=== PATIENT | male | born 1950 | race Hispanic/Latino ===

== ENCOUNTER 2017-12-02 16:54 | Inpatient (IN) | payer MEDICAID ==
--- NOTE | 2017-12-02 18:12 | ED PDOC ---
HPI: Psych/Substance Abuse Time Seen by Provider: 12/02/17 17:05 Chief Complaint (Nursing): Psychiatric Evaluation Chief Complaint (Provider): Psychiatric Evaluation History Per: Patient History/Exam Limitations: clinical condition Additional Complaint(s): 67 y/o male is brought to the ED by EMS for psychiatric transfer form [facility]. Upon arrival to ED patient has elevated blood pressure reading, preventing his admission. Denies chest pain, abdominal pain, shortness of breath , nausea, vomiting, palpitations, cough, syncope, headache or any further medical complaints. PMD: Dr. 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, tracheostomy - Family History Family History: States: Unknown Family Hx - Social History Current smoker - smoking cessation education provided: No Alcohol: None Drugs: Denies - Allergies Allergies/Adverse Reactions: Allergies Allergy/AdvReac Type Severity Reaction Status Date / Time doxepin [From Sinequan] Allergy RASH Verified 12/02/17 16:57 Review of Systems ROS Statement: Except As Marked, All Systems Reviewed And Found Negative (As per HPI, otherwise negative) Constitutional: Positive for: Other (Elevated blood pressure) Cardiovascular: Negative for: Chest Pain, Palpitations Respiratory: Negative for: Cough, Shortness of Breath Gastrointestinal: Negative for: Nausea, Vomiting, Abdominal Pain Neurological: Negative for: Headache, Other (syncope) Physical Exam - Reviewed Nursing Documentation Reviewed: Yes Vital Signs Reviewed: Yes - Physical Exam Appears: Positive for: Well, Non-toxic, No Acute Distress (Patient is speaking nonsensically) Head Exam: Positive for: ATRAUMATIC, NORMOCEPHALIC Skin: Positive for: Normal Color, Warm, Dry Eye Exam: Positive for: EOMI, PERRL ENT: Positive for: Pharynx Is (clear, uvula midline), Other (Mucus membranes moist.) Neck: Positive for: Painless ROM, Supple Cardiovascular/Chest: Positive for: Regular Rate, Rhythm. Negative for: Murmur Respiratory: Positive for: Normal Breath Sounds. Negative for: Accessory Muscle Use, Respiratory Distress Gastrointestinal/Abdominal: Positive for: Soft. Negative for: Tenderness, Distended, Guarding Back: Positive for: Normal Inspection Extremity: Positive for: Normal ROM. Negative for: Deformity Neurologic/Psych: Positive for: Alert (Patient is alert, awake and acitvely eating from food tray). Negative for: Oriented - ECG O2 Sat by Pulse Oximetry: 100 (RA) Pulse Ox Interpretation: Normal Medical Decision Making Medical Decision Making: Time: 18:00 Initial Impression: psychiatric aadmission, elevated blood pressure upon arrival --Upon review of transfer record, patient medicated with cardizem 90mg every 6 hours for HTN. Plan: Cardizem 90mg PO Reevaluation Repeat Vitals 1:1 observation 1830 Repeat HR: 77 Repeat BP: 169/97 1900 Repeat HR: 87 Repeat BP: 167/89 1940 Repeat BP: 148/94 Repeat HR: 75 On re-evaluation, patient offers no additional complaints. On exam, patient remains in no acute distress. Lungs clear to auscultation, cardiac RRR, abdomen soft, non-tender, repeat neuro exam shows no focal findings. Lab /Diagnostic results d/w the patient in great detail. Diagnosis of elevated BP d/w the patient. Based on history, exam and diagnostic results, plan will be for inpatient psychiatric admission. Arrangements made for admission. Diagnosis: Schizoaffective Accepting : Dax Scribe Attestation: Documented by Nayla Persaud acting as a scribe for KAROLINA Bauman. Scribe Attestation: All medical record entries made by the Scribe were at my direction and personally dictated by me. I have reviewed the chart and agree that the record accurately reflects my personal performance of the history, physical exam, medical decision making, and the department course for this patient. I have also personally directed, reviewed, and agree with the discharge instructions and disposition. Disposition - Clinical Impression Clinical Impression: Schizoaffective disorder, Elevated blood pressure reading - Patient ED Disposition Is Patient to be Admitted: Yes Counseled Patient/Family Regarding: Studies Performed, Diagnosis - Disposition Disposition Time: 19:47 Condition: STABLE - Pt Status Changed To: Hospital Disposition Of: Inpatient - Admit Certification Admit to Inpatient:: After my assessment, the patient will require hospitalization for at least two midnights. This is because of the severity of symptoms shown, intensity of services needed, and/or the medical risk in this patient being treated as an outpatient.
[2017-12-02 20:04] VITALS: O2SAT 100
[2017-12-02] MEDS ORDERED: Magnesium Hydroxide Susp 30 ml UD PO PRN (20:27)
[2017-12-02] MEDS ORDERED: Alum-Mag Hydrox-Simethicone Susp (30 mL) PO PRN (20:27)
[2017-12-02] MEDS ORDERED: Bismuth Subsalicylate 262 mg/15 ml Sus (240 ml) PO PRN (20:27)
--- NOTE | 2017-12-02 21:26 | PCM.BM ---
<Rivera Mora - Last Filed: 12/02/17 21:25> Treatment Plan Problems - Problems identified on initial assessmt Agitated/aggressive behavior Date Initiated: 12/02/17 Time Initiated: 21:25 Assessment reference: NA Status: Active Treatment assets and liabiliti Patient Assests: good support system, negotiates basic needs Patient Liabilities: medical problems - Milieu Protocol Maintain good personal hygiene: every shift Encourage regular showers, every shift Remind patient to perform daily oral care, every shift Assist patient to perform ADL's Maintain personal safety: daily Educate patient to report safety concerns to staff, daily Monitor environment for contraband/sharps Medication safety: Monitor for expected outcome, potential side effects: daily, Assess barriers to learning: daily, Assess readiness for medication education: daily <Eli Harper - Last Filed: 12/03/17 09:51> - Diagnosis (1) Schizoaffective disorder Status: Acute Interventions: Medication management, Individual and group therapy, Psychoeducation 12/03/17 09:51 <Yasmin Andre - Last Filed: 12/04/17 15:15> Family Contact Family contact: Patient agrees to contact, Family has been contacted by patient , Telephone contact initiated by staff Family contact name: Preston Nelsy YUAN Family contacted how many times per week?: 2 - Outside Agency [facility]] and [facility] Care involvment: Information-sharing Agency contact number: - Goals for Treatment Patient goals for treatment: Pt to be encouraged to attend activity and clinical groups 3-5x per week to identify at least 2 contributing factors to increased agitation, irritability, and aggression. Psycho-education to be provided to patient/family regarding benefits of medications and treatment adherence. Pt to be encouraged to participate in group milieu to develop effective coping skills to reduce aggression and reduce psychiatric hospitalizations. Coordinate discharge resource needs by providing referral for psychiatric treatment follow up in the community. Discharge/Continuing Care - Education Needs Education Needs: Family Medication, Family Diagnosis/Disease Process, Family Coping Skills, Family Community resources, Family Health Practices/Safety, Family Personal Hygiene/Grooming, Family Aftercare Safety Plan, Patient Medication, Patient Diagnosis/Disease Process, Patient Coping Skills, Patient Community resources, Patient Uses of Medical Equipment, Patient Health Practices /Safety, Patient Personal Hygiene/Grooming, Patient Aftercare Safety Plan - Discharge Discharge Criteria: Tolerates medication w/o severe side effects, Free of agitation, Normal sleep pattern, Ability to care for self, Reduction of target symptoms Discharge to:: Prison - Additional Comments 12/04/17 15:08 Pt seen and discussed in team meeting. Reason for admissions reviewed and discussed. Pt reported he was referred to the ED at [facility] because "the jerk put me here." Pt reported he was making reference to the staff members at [facility]hab [facility] nursing [facility]. Pt reported being a resident at [facility] since February 06, 2017 after bring discharged from [facility]. Pt reported he was at [facility] for 12 months. Pt presented as grandiose and inappropriately laughing. Pt reported being multilingual and having the ability to play multiple musical instruments. Pt was referred to the ED due to aggression and increased agitation. Pt's brother, Preston Whittington ([phone]) is POA. Pt's medications reviewed and discussed. Tx plan reviewed and discussed. SW to continue to follow case and contact pt's brother for additional information. - Treatment Team Participation Discussed with Family/SO: No Was Patient/Family/SO present at Treatment Team Meeting: Yes
[2017-12-02] MEDS ORDERED: Risperidone M tab 1 MG PO SCH (22:00)
[2017-12-03 07:32] LABS: HEMOGLOBIN 9.9 g/dL (12.0-18.0); MEAN CELL VOLUME 62.4 fl (80.0-94.0); MEAN CORPUSCULAR HEMOGLOBIN 19.5 pg (27.0-31.0); MEAN CORPUSCULAR HGB CONC 31.3 g/dL (33.0-37.0); RBC 5.08 Mil/uL (4.40-5.90); RED CELL DISTRIBUTION WIDTH 18.7 % (11.5-14.5); WHITE BLOOD COUNT 7.5 K/uL (4.8-10.8)
[2017-12-03 07:46] LABS: ALB/GLOB RATIO 1.1 (1.0-2.1); CALCIUM 9.1 mg/dL (8.4-10.2); GFR AFRICAN-AMERICAN > 60; GFR NON-AFRICAN AMERICAN > 60; HDL CHOLESTEROL 53 MG/DL (30-70)
--- NOTE | 2017-12-03 07:53 | PCM.PSYCH ---
Initial Psychiatric Evaluation - Initial Psychiatric Evaluation Type of Admission: Voluntary Legal Status: Capacity Chief Complaint (in patient's own words): "I'm fine." Patient's Reaction to Hospitalization: HPI: 67 yo male w/ h/o schizoaffective disorder presents w/ worsening behavioral issues, mood lability and acute psychosis. As per patient's family, patient has been increasing delusional, believing that he has special abilities. He has also been physically and verbally aggressive towards others. Patient is minimizing symptoms to marketing underwriter. He denies depression/anxiety. He denies ideations to harm self or others. He denies AH/VH, but seems internally preoccupied and is observed talking to himself. He did express vague paranoia that the [facility] staff were trying to set him up, but denies that anyone is actively trying to persecute him. PPHx: H/o Schizoaffective vs bipolar disorder; was treated w/ [place] in the past, but this was discontinued due to lithium toxicity. He is now treated w/ Haldol, Zyprexa and Ativan. PMHx: (As per records, patient not able to provided accurate history) Was found to have UTI in the [facility] ER and was started on Keflex; Cellulities, GI hemorrhage, h/o MRSA, h/o sepsis, anemia ALL: Doxepin SHx: Resides in [facility]; brother is POA Current Medications: Active Medications Generic Name Dose Route Start Last Admin Trade Name Freq PRN Reason Stop Dose Admin Acetaminophen 650 mg 12/02/17 20:27 Tylenol 325mg Tab PO Q4 PRN Pain, moderate (4-7) Al Hydrox/Mg Hydrox/Simethicone 30 ml 12/02/17 20:27 Maalox Plus 30 Ml PO Q4 PRN Dyspepsia Bismuth Subsalicylate 524 mg 12/02/17 20:27 Pepto-Bismol PO Q4 PRN Diarrhea Lorazepam 0.5 mg 12/02/17 20:27 Ativan PO 12/16/17 20:28 HS PRN Insomnia Lorazepam 0.5 mg 12/02/17 20:27 Ativan PO 12/16/17 20:28 Q6 PRN Anixety/Agitation Magnesium Hydroxide 30 ml 12/02/17 20:27 Milk Of Magnesia PO HS PRN Constipation Risperidone 1 mg 12/02/17 22:00 12/02/17 21:34 Risperdal M-Tab PO 1 mg HS TAMMI Administration Trazodone HCl 50 mg 12/02/17 21:19 12/02/17 23:16 Desyrel PO 50 mg HS PRN Administration Insomnia Past Psychiatric History - Past Psychiatric History Previous Treatment History: Inpatient Pertinent Medical Hx (Current Medical&Sleep Prob, Allergies): Allergies Allergy/AdvReac Type Severity Reaction Status Date / Time doxepin [From Sinequan] Allergy RASH Verified 12/02/17 16:57 Acidoph/L.bulg/Bif.b/S.thermop [Isaura-Bid Caplet] 1 tab PO BID 12/02/17 Albuterol Sulfate [Albuterol Sulfate] Q6 PRN 12/02/17 Dextromethorphan/Benzocaine [Cepacol Sorethroat-Cough Breezy] 1 lozenge PO Q2 PRN 12/02/17 Docusate [Colace] 100 mg PO BID 12/02/17 Haloperidol [Haldol] 5 mg PO TID 12/02/17 LORazepam [Ativan] 1 mg PO TID 12/02/17 Magnesium Hydroxide [Milk Of Magnesia] 30 ml PO DAILY PRN 12/02/17 Olanzapine [Zyprexa] 5 mg PO HS 12/02/17 Pantoprazole Sodium [Protonix] 40 tab PO Q12 12/02/17 Sucralfate [Carafate] 1 gm PO ACHS 12/02/17 Tamsulosin [Flomax] 0.4 mg PO DAILY 12/02/17 diltiaZEM [Cardizem] 90 mg PO Q6 12/02/17 guaiFENesin/Dextromethorphan [Robitussin DM] 10 ml PO Q6 PRN 12/02/17 Review of Systems - Psychiatric Psychiatric: As Per HPI, Abnormal Sleep Pattern, Behavioral Changes, Difficulty Concentrating, Irritability, Memory Loss, Paranoia, Other (Delusions) Mental Status Examination - Personal Presentation Personal Presentation: Looks older than stated age - Affect Affect: Broad, Other (Inappropriately happy) - Motor Activity Motor Activity: Calm - Reliability in Providing Information Reliability in Providing Information: Poor, due to alteration in thoughts, Poor , due to altered mood - Speech Speech: Coherent - Mood Mood: Euphoric - Formal Thought Process Formal Thought Process: Paranoia, Loosening of associations - Hallucinations/Delusions Delusions: Granduer - Obsessions/Compulsions Obsessions: No Compulsions: No - Cognitive Functions Orientation: Person, Place, Situation, Time Sensorium: Alert Attention/Concentration: Easily distracted Estimate of Intelligence: Average Judgement: Imparied, as evidence by: Poor judgement, Imparied, as evidence by: Lack of insight into illness Memory: Recent impaired, as evidence by: Inability to recall events of the day - Risk Risk: Diminished functioning - Strength & Assets Inventory Strength & Assets Inventory: Family support, Cooperative - Limitations Limitations: Decreased memory, recent DSM 5 DX - DSM 5 DSM 5 Diagnosis: Schizoaffective Disorder - Recommended/Plan of Treatment Treatment Recommendations and Plan of Treatment: Schizoaffective Disorder -Admit to geriatric psychiatry unit -Individual and group therapy -Psychoeducation -Case discussed w/ patient's [id number], Domonique -Increase Zyprexa and hold Haldol; can given Haldol PRN if needed -Start Depakote 500 mg PO BID -Taper Ativan in case it is causing the patient to be more disinhibited -Disposition planning -Medicine consult Projected ELOS: 7-10 days Discharge Plan and Discharge Criteria: Discharge when patient is psychiatrically stable - Smoking Cessation Smoking Cessation Initiated: No Reason for not providing: Not indicated
[2017-12-03 07:58] LABS: LDL CHOLESTEROL 63 mg/dL (0-129)
[2017-12-03 08:04] LABS: T4 8.11 ug/dl (5.5-11.0)
[2017-12-03 08:22] LABS: FERRITIN 9.4 ng/Ml (17.9-464)
[2017-12-03 09:02] LABS: ALT/SGPT 29 U/L (21-72); AST/SGOT 34 U/L (17-59); BLOOD UREA NITROGEN 19 mg/dl (9-20)
[2017-12-03 09:39] LABS: IRON 24 ug/dL (49-181)
[2017-12-03 09:48] LABS: % IRON SATURATION 6 % (20-55); TOTAL IRON BINDING CAPACITY 413 ug/dL (250-450)
[2017-12-03] MEDS: Pantoprazole 40 mg EC Tab PO SCH (11:10)
[2017-12-03] MEDS: Divalproex 500 mg DR(BID formulation) PO SCH ×2 (11:57→16:56)
[2017-12-03] MEDS ORDERED: guaiFENesin DM 200 mg-20 mg/10 ml UD PO PRN (13:36)
--- NOTE | 2017-12-03 13:45 | CP.PCM.CON ---
History of Present Illness - History of Present Illness History of Present Illness: This is a 67 year old male with past medical history of essential hypertension, schizophrenia, Bipolar disorder, anxiety, who is being admitted to the inpatient psychiatric abebe from [facility]. The patient is complaining of some chest congestion but denies cough at this time. Denies any chest pain, abdominal pain, shortness of breath, nausea, vomiting, palpitations , cough, syncope, headache or any further medical complaints. PMD: Dr. Guzman Review of Systems - Review of Systems Review of Systems: A 12 point review of systems was conducted and found to be negative other than what was mentioned in the HPI. - Neurological Additional comments: A 12 point review of systems was conducted and found to be negative other than what was mentioned in the HPI. Past Patient History - Infectious Disease Hx of Infectious Diseases: None - Past Medical History & Family History Past Medical History?: Yes Past Family History: Reviewed and not pertinent - Past Social History Smoking Status: Former Smoker Alcohol: None Drugs: Denies - CARDIAC Hx Hypertension: Yes - MUSCULOSKELETAL/RHEUMATOLOGICAL Hx Falls: No - GENITOURINARY/GYNECOLOGICAL Hx Prostate Problems: Yes (benign neoplasm of the prostate) - PSYCHIATRIC Hx Anxiety: Yes Hx Bipolar Disorder: Yes Hx Depression: Yes (manic depression) Hx Schizophrenia: Yes Meds Allergies/Adverse Reactions: Allergies Allergy/AdvReac Type Severity Reaction Status Date / Time doxepin [From Sinequan] Allergy RASH Verified 12/02/17 16:57 - Medications Medications: Current Medications Acetaminophen (Tylenol 325mg Tab) 650 mg PO Q4 PRN PRN Reason: Pain, moderate (4-7) Al Hydrox/Mg Hydrox/Simethicone (Maalox Plus 30 Ml) 30 ml PO Q4 PRN PRN Reason: Dyspepsia Albuterol Sulfate (Albuterol 0.083% Inhal Desiree (2.5 Mg/3 Ml) Ud) 2.5 mg INH RQ6 PRN PRN Reason: Shortness of Breath Bismuth Subsalicylate (Pepto-Bismol) 524 mg PO Q4 PRN PRN Reason: Diarrhea Cephalexin Monohydrate (Keflex) 500 mg PO Q12 TAMMI PRN Reason: Protocol Stop: 12/10/17 01:00 Last Admin: 12/03/17 11:09 Dose: 500 mg Diltiazem HCl (Cardizem) 90 mg PO Q6 [facility] Last Admin: 12/03/17 11:09 Dose: 90 mg Divalproex Sodium (Depakote Dr(*Bid*)) 500 mg PO BID [facility] Last Admin: 12/03/17 11:57 Dose: 500 mg Docusate Sodium (Colace) 100 mg PO BID [facility] Haloperidol (Haldol) 5 mg PO Q8 PRN PRN Reason: Agitation Haloperidol Lactate (Haldol) 5 mg IM Q8 PRN PRN Reason: Agitation Lorazepam (Ativan) 0.5 mg PO HS PRN PRN Reason: Insomnia Stop: 12/16/17 20:28 Lorazepam (Ativan) 0.5 mg PO Q6 PRN PRN Reason: Anixety/Agitation Stop: 12/16/17 20:28 Lorazepam (Ativan) 0.5 mg PO TID [facility] Magnesium Hydroxide (Milk Of Magnesia) 30 ml PO HS PRN PRN Reason: Constipation Olanzapine (Zyprexa) 10 mg PO HS [facility] Pantoprazole Sodium (Protonix Ec Tab) 40 mg PO DAILY [facility] Last Admin: 12/03/17 11:10 Dose: 40 mg Sucralfate (Carafate Tab) 1 gm PO QID [facility] Tamsulosin HCl (Flomax) 0.4 mg PO DAILY [facility] Last Admin: 12/03/17 11:10 Dose: 0.4 mg Physical Exam - Additional Findings Additional findings: Physical exam: Constitutional- cooperative, awake, alert Head- NCAT, PERRL Eye- PERRL, EOMI ENT- normal exam, MMM. Neck- normal inspection, supple, no JVD Respiratory- CTAB, mild rhonchi left base, no wheezing or rales Cardiovascular- RRR, +S1, +S2 no MRG GI/Abdominal- normal bowel sounds, soft, no mass, no hsm Skin- warm, dry Extremities Exam- normal capillary refill, normal inspection Neurological Exam- alert, awake, oriented Psych- normal mood, normal affect Results - Vital Signs Recent Vital Signs: Last Vital Signs Temp 98.1 F 12/03/17 06:00 Pulse 68 12/03/17 06:00 Resp 19 12/03/17 06:00 BP 159/80 H 12/03/17 06:00 Pulse Ox 100 12/02/17 20:47 - Labs Result Diagrams: 12/03/17 07:04 12/03/17 07:04 Labs: Laboratory Results - last 24 hr 12/03/17 12/03/17 12/03/17 07:04 07:04 07:04 WBC 7.5 RBC 5.08 Hgb 9.9 L Hct 31.7 L MCV 62.4 L MCH 19.5 L MCHC 31.3 L RDW 18.7 H Plt Count 241 Sodium 141 Potassium 4.2 Chloride 102 Carbon Dioxide 25 Anion Gap 18 BUN 19 Creatinine 0.8 Est GFR ( Amer) > 60 Est GFR (Non-Af Amer) > 60 Random Glucose 100 Hemoglobin A1c Calcium 9.1 Iron TIBC % Saturation Ferritin 9.4 L Total Bilirubin 0.6 AST 34 ALT 29 Alkaline Phosphatase 76 Total Protein 7.5 Albumin 4.0 Globulin 3.5 Albumin/Globulin Ratio 1.1 Triglycerides 54 Cholesterol 138 LDL Cholesterol Direct 63 HDL Cholesterol 53 Vitamin B12 362 Free T4 1.19 Thyroxine (T4) 8.11 TSH 3rd Generation 1.08 12/03/17 12/03/17 07:08 07:08 WBC RBC Hgb Hct MCV MCH MCHC RDW Plt Count Sodium Potassium Chloride Carbon Dioxide Anion Gap BUN Creatinine Est GFR ( Amer) Est GFR (Non-Af Amer) Random Glucose Hemoglobin A1c 6.4 Calcium Iron 24 L TIBC 413 % Saturation 6 L Ferritin Total Bilirubin AST ALT Alkaline Phosphatase Total Protein Albumin Globulin Albumin/Globulin Ratio Triglycerides Cholesterol LDL Cholesterol Direct HDL Cholesterol Vitamin B12 Free T4 Thyroxine (T4) TSH 3rd Generation Assessment & Plan - Assessment and Plan (Free Text) Plan: This is a 67 year old male with past medical history of essential hypertension, schizophrenia, Bipolar disorder, anxiety, who is being admitted to the inpatient psychiatric abebe from [facility]. He is being seen by the hospitalist team for medical consultation. 1) Essential hypertension - Patient takes Cardizem 90 mg po q 6 hours for home medication- continue for now but monitor BP and HR closely 2) Bipolar disorder- acutely manic - management as per psychiatry 3) Constipation - Colace 4) Benign neoplasm of prostate - Continue Flomax
[2017-12-03 17:30] LABS: FOLATE 10.7 ng/mL
--- NOTE | 2017-12-04 08:22 | PCM.PYCHPN ---
Psychiatric Progress Note - Psychiatric Progress Note Patient seen today, length of contact: Patient evaluated, case discussed with team, chart reviewed Patient Chief Complaint: "I'm good." Problems Identified/Issues Discussed: Patient is calm w/ comic book writer. He continues to be euphoric, inappropriately happy and grandiose. He talks about his girlfriend and how he is a great surfer. He continues to have poor insight into his mental illness and poor judgment. He denies acute ideation to harm himself or others. Medication Change: No Medical Record Reviewed: Yes Consults ordered or reviewed: Medicine consult, Physical therapy Mental Status Examination - Cognitive Function Orientation: Person, Place, Situation, Time Memory: Impaired Attention: Poor Concentration: Poor Association: Loose Fund of Knowledge: Poor Decription of patient's judgement and insights: Poor I/J - Mood Mood: Euphoric - Affect Affect: Broad, Other (Inappropriately happy) - Speech Speech: Appropriate - Formal Thought Process Formal Thought Process: Delusions (Grandiose), Loosening of associations Psychotic Thoughts and Behaviors: +Grandiose - Suicidal Ideation Suicidal Ideation: No - Homicidal Ideation Homicidal Ideation: No Goal/Treatment Plan - Goal/Treatment Plan Need for Continued Stay: Remain at risks for inpatient hospitalization, Discharge may exacerbated symptoms, Severe functional impairment Progress Toward Problem(s) and Goals/Treatment Plan: Schizoaffective Disorder -Individual and group therapy -Psychoeducation -Continue Zyprexa and Depakote -Continue to taper Ativan in case it is causing the patient to be more disinhibited -Disposition planning -Medicine consult -Physical therapy Estimated Date of D/C: 12/10/17
[2017-12-04] MEDS: Divalproex 500 mg DR(BID formulation) PO SCH ×2 (08:24→16:26)
[2017-12-04] MEDS: Pantoprazole 40 mg EC Tab PO SCH (08:25)
[2017-12-05 00:06] LABS: SQUAMOUS EPITHIAL < 1 /hpf (0-5); URINE BILIRUBIN NEGATIVE (NEGATIVE); URINE BLOOD SMALL (NEGATIVE); URINE CLARITY TURBID (Clear); URINE COLOR YELLOW (YELLOW); URINE GLUCOSE (UA) NEG (Normal); URINE LEUKOCYTE ESTERASE LARGE Leu/uL (Negative); URINE PROTEIN NEGATIVE (NEGATIVE); URINE UROBILINOGEN 0.2-1.0 mg/dL (0.2-1.0); WBC CLUMPS FEW /hpf
--- NOTE | 2017-12-05 08:45 | PCM.PYCHPN ---
Psychiatric Progress Note - Psychiatric Progress Note Patient seen today, length of contact: Patient evaluated, case discussed with team, chart reviewed Patient Chief Complaint: "I'm good." Problems Identified/Issues Discussed: Patient continue to be manic w/ pressured speech, euphoria and grandiose delusions, including that he can speak multiple languages and has special abilities and talents. He continues to have poor insight into his mental illness and poor judgment. He denies acute ideation to harm himself or others. Medication Change: Yes (Increase Zyprexa) Medical Record Reviewed: Yes Consults ordered or reviewed: Medicine consult, Physical therapy Mental Status Examination - Cognitive Function Orientation: Person, Place, Situation, Time Memory: Impaired Attention: Poor Concentration: Poor Association: Loose Fund of Knowledge: Poor Decription of patient's judgement and insights: Poor I/J - Mood Mood: Euphoric - Affect Affect: Broad, Other (Inappropriately happy) - Speech Speech: Appropriate - Formal Thought Process Formal Thought Process: Delusions (Grandiose), Loosening of associations Psychotic Thoughts and Behaviors: +Grandiose delusions - Suicidal Ideation Suicidal Ideation: No - Homicidal Ideation Homicidal Ideation: No Goal/Treatment Plan - Goal/Treatment Plan Need for Continued Stay: Remain at risks for inpatient hospitalization, Discharge may exacerbated symptoms, Severe functional impairment Progress Toward Problem(s) and Goals/Treatment Plan: Schizoaffective Disorder -Individual and group therapy -Psychoeducation -Increase Zyprexa -Continue Depakote, will check VPA level 12/08/17 -Continue to taper Ativan in case it is causing the patient to be more disinhibited -Disposition planning -Medicine consult -Physical therapy Estimated Date of D/C: 12/10/17
[2017-12-05] MEDS: Pantoprazole 40 mg EC Tab PO SCH (09:11)
[2017-12-05] MEDS: Divalproex 500 mg DR(BID formulation) PO SCH ×2 (09:11→16:26)
[2017-12-06] MEDS: Divalproex 500 mg DR(BID formulation) PO SCH ×2 (08:46→17:47)
[2017-12-06] MEDS: Pantoprazole 40 mg EC Tab PO SCH (08:46)
--- NOTE | 2017-12-06 08:56 | PCM.PYCHPN ---
Psychiatric Progress Note - Psychiatric Progress Note Patient seen today, length of contact: Patient evaluated, case discussed with team, chart reviewed Patient Chief Complaint: "I'm good." Problems Identified/Issues Discussed: Patient continue to be manic, euphoric and grandiose. This morning he is talking about how he can play every instrument and speak almost every language. He has an episode of agitation yesterday and was verbally aggressive towards staff. He continues to have poor insight into his mental illness and poor judgment. He denies acute ideation to harm himself or others. Medication Change: Yes (Increase Zyprexa) Medical Record Reviewed: Yes Consults ordered or reviewed: Medicine consult, Physical therapy Mental Status Examination - Cognitive Function Orientation: Person, Place, Situation, Time Memory: Impaired Attention: Poor Concentration: Poor Association: Loose Fund of Knowledge: Poor Decription of patient's judgement and insights: Poor I/J - Mood Mood: Euphoric - Affect Affect: Broad, Other (Inappropriately happy) - Speech Speech: Appropriate - Formal Thought Process Formal Thought Process: Delusions (Grandiose), Loosening of associations Psychotic Thoughts and Behaviors: +Grandiose delusions - Suicidal Ideation Suicidal Ideation: No - Homicidal Ideation Homicidal Ideation: No Goal/Treatment Plan - Goal/Treatment Plan Need for Continued Stay: Remain at risks for inpatient hospitalization, Discharge may exacerbated symptoms, Severe functional impairment Progress Toward Problem(s) and Goals/Treatment Plan: Schizoaffective Disorder -Individual and group therapy -Psychoeducation -Increase Zyprexa -Continue Depakote, will check VPA level 12/08/17 -Stop Ativan -Disposition planning -Medicine consult -Physical therapy Estimated Date of D/C: 12/10/17
--- NOTE | 2017-12-07 08:45 | PCM.PYCHPN ---
Psychiatric Progress Note - Psychiatric Progress Note Patient seen today, length of contact: Patient evaluated, case discussed with team, chart reviewed Patient Chief Complaint: "I'm good." Problems Identified/Issues Discussed: Patient had an episode of agitation and was verbally aggressive towards another patient. Patient had to be given PRN Haldol. He continues to be labile and easily irritated. At this time, patient is calm and cooperative with junior underwriter. He continues to be manic, euphoric and grandiose. He continues to have poor insight into his mental illness and poor judgment. He denies acute ideation to harm himself or others. Medication Change: Yes (Increase Depakote) Medical Record Reviewed: Yes Consults ordered or reviewed: Medicine consult, Physical therapy Mental Status Examination - Cognitive Function Orientation: Person, Place, Situation, Time Memory: Impaired Attention: Poor Concentration: Poor Association: Loose Fund of Knowledge: Poor Decription of patient's judgement and insights: Poor I/J - Mood Mood: Euphoric - Affect Affect: Broad, Other (Inappropriately happy) - Speech Speech: Appropriate - Formal Thought Process Formal Thought Process: Delusions (Grandiose), Loosening of associations Psychotic Thoughts and Behaviors: +Grandiose delusions - Suicidal Ideation Suicidal Ideation: No - Homicidal Ideation Homicidal Ideation: No Goal/Treatment Plan - Goal/Treatment Plan Need for Continued Stay: Remain at risks for inpatient hospitalization, Discharge may exacerbated symptoms, Severe functional impairment Progress Toward Problem(s) and Goals/Treatment Plan: Schizoaffective Disorder -Individual and group therapy -Psychoeducation -Continue Zyprexa 20 mg PO HS -Increase Depakote to 500 mg PO Daily/ 750 mg PO Daily@1700, will check VPA level 12/09/17 -Patient being treated for UTI w/ Keflex -Disposition planning -Medicine consult -Physical therapy Estimated Date of D/C: 12/14/17
[2017-12-07] MEDS: Divalproex 500 mg DR(BID formulation) PO SCH ×2 (09:05→16:40)
[2017-12-07] MEDS: Pantoprazole 40 mg EC Tab PO SCH (09:06)
[2017-12-07] MEDS: Divalproex 250 mg DR(BID formulation) PO SCH (16:40)
[2017-12-08] MEDS: Divalproex 500 mg DR(BID formulation) PO SCH ×2 (08:49→17:03)
[2017-12-08] MEDS: Pantoprazole 40 mg EC Tab PO SCH (08:49)
--- NOTE | 2017-12-08 09:40 | PCM.PYCHPN ---
Psychiatric Progress Note - Psychiatric Progress Note Patient seen today, length of contact: Patient evaluated, case discussed with team, chart reviewed Patient Chief Complaint: pt is still labile and stil irritible .no aggressive behaviors. Medication Change: Yes (Increase Depakote) Medical Record Reviewed: Yes Mental Status Examination - Cognitive Function Orientation: Person, Place, Situation, Time Memory: Impaired Attention: Poor Concentration: Poor Association: Loose Fund of Knowledge: Poor - Mood Mood: Euphoric - Affect Affect: Broad, Other (Inappropriately happy) - Speech Speech: Appropriate - Formal Thought Process Formal Thought Process: Delusions (Grandiose), Loosening of associations - Suicidal Ideation Suicidal Ideation: No - Homicidal Ideation Homicidal Ideation: No Goal/Treatment Plan - Goal/Treatment Plan Need for Continued Stay: Remain at risks for inpatient hospitalization, Discharge may exacerbated symptoms, Severe functional impairment Progress Toward Problem(s) and Goals/Treatment Plan: will check VPA in am and adjust the dose. Estimated Date of D/C: 12/14/17
[2017-12-08] MEDS: Divalproex 250 mg DR(BID formulation) PO SCH (17:04)
[2017-12-09 08:06] LABS: BASO # 0.1 K/uL (0.0-0.2); BASO % 0.8 % (0.0-2.0); EOS # 0.3 K/uL (0.0-0.7); EOS % 3.8 % (0.0-4.0); HEMOGLOBIN 11.5 g/dL (12.0-18.0); LYMPH # 1.2 K/uL (1.0-4.3); LYMPH % 18.2 % (20.0-40.0); MEAN CELL VOLUME 63.4 fl (80.0-94.0); MEAN CORPUSCULAR HEMOGLOBIN 19.6 pg (27.0-31.0); MEAN PLATELET VOLUME 10.5 fl (7.2-11.7); MONO # 0.5 K/uL (0.0-0.8); MONO % 7.8 % (0.0-10.0); NEUT # 4.8 K/uL (1.8-7.0); NEUT % 69.4 % (50.0-75.0); NRBC % 0.1 % (0.0-0.0); RBC 5.86 Mil/uL (4.40-5.90); WHITE BLOOD COUNT 6.9 K/uL (4.8-10.8)
[2017-12-09 08:18] LABS: ALB/GLOB RATIO 1.2 (1.0-2.1); ALBUMIN 4.1 g/dL (3.5-5.0); ALT/SGPT 23 U/L (21-72); AST/SGOT 22 U/L (17-59); BLOOD UREA NITROGEN 16 mg/dl (9-20); CALCIUM 8.8 mg/dL (8.4-10.2); GFR AFRICAN-AMERICAN > 60; GFR NON-AFRICAN AMERICAN > 60
[2017-12-09] MEDS: Divalproex 500 mg DR(BID formulation) PO SCH (09:37)
[2017-12-09] MEDS: Pantoprazole 40 mg EC Tab PO SCH (09:39)
--- NOTE | 2017-12-09 14:52 | PCM.PYCHPN ---
Psychiatric Progress Note - Psychiatric Progress Note Patient seen today, length of contact: Patient evaluated, case discussed with team, chart reviewed Patient Chief Complaint: pt is still very belligerent,labile and easily angry and got into altercation with another peer and need further stabilization valproic acid level = 68 Medication Change: Yes (Increase Depakote) Medical Record Reviewed: Yes Mental Status Examination - Cognitive Function Orientation: Person, Place, Situation, Time Memory: Impaired Attention: Poor Concentration: Poor Association: Loose Fund of Knowledge: Poor - Mood Mood: Euphoric - Affect Affect: Broad, Other (Inappropriately happy) - Speech Speech: Appropriate - Formal Thought Process Formal Thought Process: Delusions (Grandiose), Loosening of associations - Suicidal Ideation Suicidal Ideation: No - Homicidal Ideation Homicidal Ideation: No Goal/Treatment Plan - Goal/Treatment Plan Need for Continued Stay: Remain at risks for inpatient hospitalization, Discharge may exacerbated symptoms, Severe functional impairment Progress Toward Problem(s) and Goals/Treatment Plan: katie increase depakote to 750 mg bid to address the tho and engage pt in therapy and groups. Estimated Date of D/C: 12/14/17
[2017-12-09] MEDS: Divalproex 250 mg DR(BID formulation) PO SCH (17:11)
[2017-12-10] MEDS: Pantoprazole 40 mg EC Tab PO SCH (08:43)
[2017-12-10] MEDS: Divalproex 250 mg DR(BID formulation) PO SCH ×2 (08:45→21:07)
--- NOTE | 2017-12-10 10:03 | PCM.PYCHPN ---
Psychiatric Progress Note - Psychiatric Progress Note Patient seen today, length of contact: Patient evaluated, case discussed with team, chart reviewed Patient Chief Complaint: "I need a shower now!!!" Problems Identified/Issues Discussed: Patient was irritable over the weekend and had an episode of agitation and aggression. He continues to be labile and irritable w/ field underwriter, demanding to be given a shower and claiming that he is being denied showers on the unit (not true, patient is offered daily showers). He continues to be manic and grandiose with poor insight/judgment. Medication Change: Yes (Start Klonopin) Medical Record Reviewed: Yes Consults ordered or reviewed: Medicine consult, Physical therapy Mental Status Examination - Cognitive Function Orientation: Person, Place, Situation, Time Memory: Impaired Attention: Poor Concentration: Poor Association: Loose Fund of Knowledge: Poor Decription of patient's judgement and insights: Poor I/J - Mood Mood: Euphoric - Affect Affect: Broad, Other (Inappropriately happy) - Speech Speech: Appropriate - Formal Thought Process Formal Thought Process: Delusions (Grandiose), Loosening of associations Psychotic Thoughts and Behaviors: +Grandiose - Suicidal Ideation Suicidal Ideation: No - Homicidal Ideation Homicidal Ideation: No Goal/Treatment Plan - Goal/Treatment Plan Need for Continued Stay: Remain at risks for inpatient hospitalization, Discharge may exacerbated symptoms, Severe functional impairment Progress Toward Problem(s) and Goals/Treatment Plan: Schizoaffective Disorder -Individual and group therapy -Psychoeducation -Continue Zyprexa 20 mg PO HS -Continue Depakote 750 mg PO BID; VPA 68 on 12/09/17 -Patient was treated for UTI -Will attempt trial of treatment with Klonopin 0.5 mg PO BID; patient was previously taking Ativan 1 mg PO TID prior to admission -Disposition planning -Medicine consult -Physical therapy Estimated Date of D/C: 12/14/17
--- NOTE | 2017-12-10 11:21 | PCM.BM ---
Treatment Plan Problems - Problems identified on initial assessmt Agitated/aggressive behavior Date Initiated: 12/02/17 Time Initiated: 21:25 Assessment reference: NA Status: Active Treatment assets and liabiliti Patient Assests: good support system, negotiates basic needs Patient Liabilities: medical problems - Milieu Protocol Maintain good personal hygiene: every shift Encourage regular showers, every shift Remind patient to perform daily oral care, every shift Assist patient to perform ADL's Maintain personal safety: daily Educate patient to report safety concerns to staff, daily Monitor environment for contraband/sharps Medication safety: Monitor for expected outcome, potential side effects: daily, Assess barriers to learning: daily, Assess readiness for medication education: daily Milieu Narrative: Schizoaffective Disorder -Individual and group therapy -Psychoeducation -Continue Zyprexa 20 mg PO HS -Continue Depakote 750 mg PO BID; VPA 68 on 12/09/17 -Patient was treated for UTI -Will attempt trial of treatment with Klonopin 0.5 mg PO BID; patient was previously taking Ativan 1 mg PO TID prior to admission -Disposition planning -Medicine consult -Physical therapy Family Contact Family involvement: Family/SO is involved Family contact: Patient agrees to contact, Family has been contacted by patient , Telephone contact initiated by staff Family contact name: Preston Whittington Family contact comment: [phone] - Outside Agency [facility] Care involvment: Information-sharing Agency contact number: - Goals for Treatment Patient goals for treatment: Pt to be encouraged to attend activity and clinical groups 3-5x per week to identify at least 2 contributing factors to increased agitation, irritability, and aggression. Psycho-education to be provided to patient/family regarding benefits of medications and treatment adherence. Pt to be encouraged to participate in group milieu to develop effective coping skills to reduce aggression and reduce psychiatric hospitalizations. Coordinate discharge resource needs by providing referral for psychiatric treatment follow up in the community. Discharge/Continuing Care - Education Needs Education Needs: Family Medication, Family Diagnosis/Disease Process, Family Coping Skills, Family Community resources, Family Health Practices/Safety, Family Personal Hygiene/Grooming, Family Aftercare Safety Plan, Patient Medication, Patient Diagnosis/Disease Process, Patient Coping Skills, Patient Community resources, Patient Uses of Medical Equipment, Patient Health Practices /Safety, Patient Personal Hygiene/Grooming, Patient Aftercare Safety Plan - Discharge Discharge Criteria: Tolerates medication w/o severe side effects, Free of agitation, Normal sleep pattern, Ability to care for self, Reduction of target symptoms Discharge to:: Shelter - Additional Comments 12/04/17 15:08 Pt seen and discussed in team meeting. Reason for admissions reviewed and discussed. Pt reported he was referred to the ED at [facility] because "the jerk put me here." Pt reported he was making reference to the staff members at [facility]hab [facility] nursing center. Pt reported being a resident at [facility] since February 06, 2017 after bring discharged from [facility]. Pt reported he was at [facility] for 12 months. Pt presented as grandiose and inappropriately laughing. Pt reported being multilingual and having the ability to play multiple musical instruments. Pt was referred to the ED due to aggression and increased agitation. Pt's brother, Preston Whittington ) is POA. Pt's medications reviewed and discussed. Tx plan reviewed and discussed. SW to continue to follow case and contact pt's brother for additional information. - Treatment Team Participation Patient/Family/SO Statement: Schizoaffective Disorder -Individual and group therapy -Psychoeducation -Continue Zyprexa 20 mg PO HS -Continue Depakote 750 mg PO BID; VPA 68 on 12/09/17 -Patient was treated for UTI -Will attempt trial of treatment with Klonopin 0.5 mg PO BID; patient was previously taking Ativan 1 mg PO TID prior to admission -Disposition planning -Medicine consult -Physical therapy Discussed with Family/SO: No Was Patient/Family/SO present at Treatment Team Meeting: Yes Treatment Plan Review Patient participation: No Family/SO/Caregiver participation: No Additional Comments: Pt reviewed and discussed in team meeting. Pt unable to attend team meeting due to refusal to leave his bed. Pt verbally abusive towards staff when entering his bedroom. Pt's progress and bx on the unit reviewed. Pt continues to display periods of irritability and agitation. Pt continues to display periods of verbal abuse towards staff and very demanding. Pt continues to display periods of grandiose, labile and pressured speech pattern. Pt's medications reviewed and adjusted per clinical need. Pt's tx plan reviewed. Pt to remain hospitalized and medications to be re-evaluated.Once stabilized pt to return to [facility]. - Problem Agitated/aggressive behavior Date Initiated: 12/02/17 Time Initiated: 21:25 Progress toward outcomes: unchanged - Discharge / Continuing Care Discharge to:: Shelter Behavior[facility] Services: Other (Medication management; structured group therapy; individual therapy) Health Needs: Follow up care/test, Doctor appointments, Special equipment, Nutritional, Medications/Rx, Educational, Recreational/Social
[2017-12-11] MEDS: Albuterol 0.083% Inhal Sol (2.5 mg/3 mL) UD INH PRN ×2 (06:34→22:44)
[2017-12-11] MEDS: Divalproex 250 mg DR(BID formulation) PO SCH ×2 (08:35→16:35)
[2017-12-11] MEDS: Pantoprazole 40 mg EC Tab PO SCH (08:38)
--- NOTE | 2017-12-11 09:16 | PCM.PYCHPN ---
Psychiatric Progress Note - Psychiatric Progress Note Patient seen today, length of contact: Patient evaluated, case discussed with team, chart reviewed Patient Chief Complaint: "I'm okay." Problems Identified/Issues Discussed: Patient continues to have periods of agitation and irritability and is verbally aggressive towards others at times. He is currently calm and cooperative with leader writer. He continues to be manic and grandiose with poor insight/judgment. Diagnostic Results: VPA 68 on 12/09/17 Medication Change: No Medical Record Reviewed: Yes Consults ordered or reviewed: Medicine consult, Physical therapy Mental Status Examination - Cognitive Function Orientation: Person, Place, Situation, Time Memory: Impaired Attention: Poor Concentration: Poor Association: Loose Fund of Knowledge: Poor Decription of patient's judgement and insights: Poor I/J - Mood Mood: Euphoric - Affect Affect: Broad, Other (Inappropriately happy) - Speech Speech: Appropriate - Formal Thought Process Formal Thought Process: Delusions (Grandiose), Loosening of associations Psychotic Thoughts and Behaviors: +Grandiose - Suicidal Ideation Suicidal Ideation: No - Homicidal Ideation Homicidal Ideation: No Goal/Treatment Plan - Goal/Treatment Plan Need for Continued Stay: Remain at risks for inpatient hospitalization, Discharge may exacerbated symptoms, Severe functional impairment Progress Toward Problem(s) and Goals/Treatment Plan: Schizoaffective Disorder -Individual and group therapy -Psychoeducation -Continue Zyprexa 20 mg PO HS -Continue Depakote 750 mg PO BID; VPA 68 on 12/09/17 -Patient completed treatment for UTI -Contiue Klonopin 0.5 mg PO BID -Disposition planning -Medicine consult -Physical therapy Estimated Date of D/C: 12/17/17
[2017-12-12] MEDS: Divalproex 250 mg DR(BID formulation) PO SCH ×2 (08:42→17:42)
[2017-12-12] MEDS: Pantoprazole 40 mg EC Tab PO SCH (08:45)
--- NOTE | 2017-12-12 10:46 | PCM.PYCHPN ---
Psychiatric Progress Note - Psychiatric Progress Note Patient seen today, length of contact: Patient evaluated, case discussed with team, chart reviewed Patient Chief Complaint: "I'm okay." Problems Identified/Issues Discussed: Patient continues to have periods of mood lability/agitation and curses at others at times. He is currently calm and cooperative with proposal lead writer. He continues to be manic and grandiose with poor insight/judgment. Diagnostic Results: VPA 68 on 12/09/17 Medication Change: No Medical Record Reviewed: Yes Consults ordered or reviewed: Medicine consult, Physical therapy Mental Status Examination - Cognitive Function Orientation: Person, Place, Situation, Time Memory: Impaired Attention: Poor Concentration: Poor Association: Loose Fund of Knowledge: Poor Decription of patient's judgement and insights: Poor I/J - Mood Mood: Euphoric - Affect Affect: Broad, Other (Inappropriately happy) - Speech Speech: Appropriate - Formal Thought Process Formal Thought Process: Delusions (Grandiose), Loosening of associations Psychotic Thoughts and Behaviors: +Grandiose - Suicidal Ideation Suicidal Ideation: No - Homicidal Ideation Homicidal Ideation: No Goal/Treatment Plan - Goal/Treatment Plan Need for Continued Stay: Remain at risks for inpatient hospitalization, Discharge may exacerbated symptoms, Severe functional impairment Progress Toward Problem(s) and Goals/Treatment Plan: Schizoaffective Disorder -Individual and group therapy -Psychoeducation -Continue Zyprexa 20 mg PO HS -Continue Depakote 750 mg PO BID; VPA 68 on 12/09/17 -Patient completed treatment for UTI -Contiue Klonopin 0.5 mg PO BID -Disposition planning -Medicine consult -Physical therapy Estimated Date of D/C: 12/17/17
[2017-12-13] MEDS: Pantoprazole 40 mg EC Tab PO SCH (08:52)
[2017-12-13] MEDS: Divalproex 250 mg DR(BID formulation) PO SCH ×2 (09:04→17:38)
--- NOTE | 2017-12-13 10:36 | PCM.PYCHPN ---
Psychiatric Progress Note - Psychiatric Progress Note Patient seen today, length of contact: Patient evaluated, case discussed with team, chart reviewed Patient Chief Complaint: "I'm okay." Problems Identified/Issues Discussed: Patient is currently calm and pleasant towards press writer, but continues to have periods of mood lability/agitation. He continues to be grandiose with chronic poor insight/judgment. Diagnostic Results: VPA 68 on 12/09/17 Medication Change: Yes (Increase Klonopin) Medical Record Reviewed: Yes Consults ordered or reviewed: Medicine consult, Physical therapy Mental Status Examination - Cognitive Function Orientation: Person, Place, Situation, Time Memory: Impaired Attention: Poor Concentration: Poor Association: Loose Fund of Knowledge: Poor Decription of patient's judgement and insights: Poor I/J - Mood Mood: Euphoric - Affect Affect: Broad, Other (Inappropriately happy) - Speech Speech: Appropriate - Formal Thought Process Formal Thought Process: Delusions (Grandiose), Loosening of associations Psychotic Thoughts and Behaviors: +Grandiose - Suicidal Ideation Suicidal Ideation: No - Homicidal Ideation Homicidal Ideation: No Goal/Treatment Plan - Goal/Treatment Plan Need for Continued Stay: Remain at risks for inpatient hospitalization, Discharge may exacerbated symptoms, Severe functional impairment Progress Toward Problem(s) and Goals/Treatment Plan: Schizoaffective Disorder -Individual and group therapy -Psychoeducation -Continue Zyprexa 20 mg PO HS -Continue Depakote 750 mg PO BID; VPA 68 on 12/09/17 -Patient completed treatment for UTI -Increase Klonopin to 1 mg PO BID -Disposition planning -Medicine consult -Physical therapy Estimated Date of D/C: 12/18/17
[2017-12-14] MEDS: Divalproex 250 mg DR(BID formulation) PO SCH ×2 (08:26→16:35)
[2017-12-14] MEDS: Pantoprazole 40 mg EC Tab PO SCH (08:27)
--- NOTE | 2017-12-14 08:38 | PCM.PYCHPN ---
Psychiatric Progress Note - Psychiatric Progress Note Patient seen today, length of contact: Patient evaluated, case discussed with team, chart reviewed Patient Chief Complaint: "I'm okay." Problems Identified/Issues Discussed: Patient continues to be grandiose and tangential, but he is calmer and more redirectable w/ less behavioral disturbances. He continues to have chronic poor insight/judgment. Diagnostic Results: VPA 68 on 12/09/17 Medication Change: No Medical Record Reviewed: Yes Consults ordered or reviewed: Medicine consult, Physical therapy Mental Status Examination - Cognitive Function Orientation: Person, Place, Situation, Time Memory: Impaired Attention: Poor Concentration: Poor Association: Loose Fund of Knowledge: Poor Decription of patient's judgement and insights: Poor I/J - Mood Mood: Euphoric - Affect Affect: Broad, Other (Inappropriately happy) - Speech Speech: Appropriate - Formal Thought Process Formal Thought Process: Delusions (Grandiose), Loosening of associations Psychotic Thoughts and Behaviors: +Grandiose - Suicidal Ideation Suicidal Ideation: No - Homicidal Ideation Homicidal Ideation: No Goal/Treatment Plan - Goal/Treatment Plan Need for Continued Stay: Remain at risks for inpatient hospitalization, Discharge may exacerbated symptoms, Severe functional impairment Progress Toward Problem(s) and Goals/Treatment Plan: Schizoaffective Disorder -Individual and group therapy -Psychoeducation -Continue Zyprexa 20 mg PO HS -Continue Depakote 750 mg PO BID; VPA 68 on 12/09/17 -Patient completed treatment for UTI -Continue Klonopin 1 mg PO BID -Disposition planning -Medicine consult -Physical therapy Estimated Date of D/C: 12/19/17 - Smoking Cessation Smoking Cessation Initiated: No Reason for not providing: Not indicated
[2017-12-14] MEDS: Albuterol 0.083% Inhal Sol (2.5 mg/3 mL) UD INH PRN (20:23)
[2017-12-15] MEDS: Albuterol 0.083% Inhal Sol (2.5 mg/3 mL) UD INH PRN ×2 (06:21→13:51)
[2017-12-15] MEDS: Pantoprazole 40 mg EC Tab PO SCH (08:35)
[2017-12-15] MEDS: Divalproex 250 mg DR(BID formulation) PO SCH ×2 (08:38→16:29)
--- NOTE | 2017-12-15 12:46 | PCM.PYCHPN ---
Psychiatric Progress Note - Psychiatric Progress Note Patient seen today, length of contact: Patient evaluated, case discussed with team, chart reviewed Patient Chief Complaint: I like to read the bible Problems Identified/Issues Discussed: pt seen in bed, presenting with labil mood and affect, jewish preoccupation, over productive speech, continues to be hypomanic denied perceptual disturbances, no reported side effects of mmedications denied suicidal or homicidal ideation DSM 5 Symptoms Update: schizoaffective disorder bipolar Medication Change: No Medical Record Reviewed: Yes Mental Status Examination - Cognitive Function Orientation: Person, Place, Situation, Time Memory: Impaired Attention: Poor Concentration: Poor Association: Loose Fund of Knowledge: Poor - Mood Mood: Euphoric - Affect Affect: Broad, Other (Inappropriately happy) - Speech Speech: Appropriate - Formal Thought Process Formal Thought Process: Delusions (Grandiose), Loosening of associations - Suicidal Ideation Suicidal Ideation: No - Homicidal Ideation Homicidal Ideation: No Goal/Treatment Plan - Goal/Treatment Plan Need for Continued Stay: Remain at risks for inpatient hospitalization, Discharge may exacerbated symptoms, Severe functional impairment Progress Toward Problem(s) and Goals/Treatment Plan: continue current medications group and supportive therapy Estimated Date of D/C: 12/19/17
[2017-12-16] MEDS: Albuterol 0.083% Inhal Sol (2.5 mg/3 mL) UD INH PRN (01:53)
[2017-12-16] MEDS: Pantoprazole 40 mg EC Tab PO SCH (09:05)
[2017-12-16] MEDS: Divalproex 250 mg DR(BID formulation) PO SCH ×2 (09:08→17:16)
--- NOTE | 2017-12-16 12:51 | PCM.PYCHPN ---
Psychiatric Progress Note - Psychiatric Progress Note Patient seen today, length of contact: Patient evaluated, case discussed with team, chart reviewed Patient Chief Complaint: I am ok Problems Identified/Issues Discussed: pt seen in bed, continues to be hpomanic labile with overproductive speech, denied perceptual disturbances, no reported side effects of medications denied suicidal or homicidal ideation DSM 5 Symptoms Update: schizoaffective disorder bipolar Medication Change: No Medical Record Reviewed: Yes Mental Status Examination - Cognitive Function Orientation: Person, Place, Situation, Time Memory: Impaired Attention: Poor Concentration: Poor Association: Loose Fund of Knowledge: Poor - Mood Mood: Euphoric - Affect Affect: Broad, Other (Inappropriately happy) - Speech Speech: Loud Additional comments: over productive - Formal Thought Process Formal Thought Process: Delusions (Grandiose), Loosening of associations Psychotic Thoughts and Behaviors: jainism pre occupation - Suicidal Ideation Suicidal Ideation: No - Homicidal Ideation Homicidal Ideation: No Goal/Treatment Plan - Goal/Treatment Plan Need for Continued Stay: Remain at risks for inpatient hospitalization, Discharge may exacerbated symptoms, Severe functional impairment Progress Toward Problem(s) and Goals/Treatment Plan: continue current medications group and supportive therapy Estimated Date of D/C: 12/19/17
[2017-12-17] MEDS: Divalproex 250 mg DR(BID formulation) PO SCH ×2 (08:41→16:38)
[2017-12-17] MEDS: Pantoprazole 40 mg EC Tab PO SCH (08:44)
--- NOTE | 2017-12-17 09:17 | PCM.PYCHPN ---
Psychiatric Progress Note - Psychiatric Progress Note Patient seen today, length of contact: Patient evaluated, case discussed with team, chart reviewed Patient Chief Complaint: "I'm okay." Problems Identified/Issues Discussed: Patient is calmer and more redirectable. He continues to be grandiose, but this is likely his baseline. He is not currently aggressive or threatening. He continues to have chronic poor insight/judgment. Diagnostic Results: VPA 68 on 12/09/17, VPA 63.2 on 12/14/17 Medication Change: No Medical Record Reviewed: Yes Consults ordered or reviewed: Medicine consult, Physical therapy Mental Status Examination - Cognitive Function Orientation: Person, Place, Situation, Time Memory: Impaired Attention: Poor Concentration: Poor Association: Loose Fund of Knowledge: Poor Decription of patient's judgement and insights: Chronic poor I/J - Mood Mood: Euphoric - Affect Affect: Broad - Speech Speech: Appropriate - Formal Thought Process Formal Thought Process: Delusions (Patient w/ chronic grandiose delusions), Loosening of associations Psychotic Thoughts and Behaviors: +Grandiose - Suicidal Ideation Suicidal Ideation: No - Homicidal Ideation Homicidal Ideation: No Goal/Treatment Plan - Goal/Treatment Plan Need for Continued Stay: Remain at risks for inpatient hospitalization, Discharge may exacerbated symptoms, Severe functional impairment Progress Toward Problem(s) and Goals/Treatment Plan: Schizoaffective Disorder -Individual and group therapy -Psychoeducation -Continue Zyprexa 20 mg PO HS -Continue Depakote 750 mg PO BID; VPA 68 on 12/09/17, VPA 63.3 on 12/14/17 -Patient completed treatment for UTI -Continue Klonopin 1 mg PO BID -Disposition planning -Medicine consult -Physical therapy Estimated Date of D/C: 12/19/17
[2017-12-17] MEDS: Albuterol 0.083% Inhal Sol (2.5 mg/3 mL) UD INH PRN ×2 (09:22→22:05)
--- NOTE | 2017-12-17 14:48 | PCM.BM ---
Treatment Plan Problems - Problems identified on initial assessmt Agitated/aggressive behavior Date Initiated: 12/02/17 Time Initiated: 21:25 Assessment reference: NA Status: Active Treatment assets and liabiliti Patient Assests: good support system, negotiates basic needs Patient Liabilities: medical problems - Milieu Protocol Maintain good personal hygiene: every shift Encourage regular showers, every shift Remind patient to perform daily oral care, every shift Assist patient to perform ADL's Maintain personal safety: daily Educate patient to report safety concerns to staff, daily Monitor environment for contraband/sharps Medication safety: Monitor for expected outcome, potential side effects: daily, Assess barriers to learning: daily, Assess readiness for medication education: daily Milieu Narrative: Schizoaffective Disorder -Individual and group therapy -Psychoeducation -Continue Zyprexa 20 mg PO HS -Continue Depakote 750 mg PO BID; VPA 68 on 12/09/17, VPA 63.3 on 12/14/17 -Patient completed treatment for UTI -Continue Klonopin 1 mg PO BID -Disposition planning -Medicine consult -Physical therapy Family Contact Family involvement: Family/SO is involved Family contact: Patient agrees to contact, Family has been contacted by patient , Telephone contact initiated by staff Family contact name: Preston Whittington Family contact comment: [phone] - Outside Agency [facility] Care involvment: Information-sharing Agency contact number: - Goals for Treatment Patient goals for treatment: Pt to be encouraged to attend activity and clinical groups 3-5x per week to identify at least 2 contributing factors to increased agitation, irritability, and aggression. Psycho-education to be provided to patient/family regarding benefits of medications and treatment adherence. Pt to be encouraged to participate in group milieu to develop effective coping skills to reduce aggression and reduce psychiatric hospitalizations. Coordinate discharge resource needs by providing referral for psychiatric treatment follow up in the community. Discharge/Continuing Care - Education Needs Education Needs: Family Medication, Family Diagnosis/Disease Process, Family Coping Skills, Family Community resources, Family Health Practices/Safety, Family Personal Hygiene/Grooming, Family Aftercare Safety Plan, Patient Medication, Patient Diagnosis/Disease Process, Patient Coping Skills, Patient Community resources, Patient Uses of Medical Equipment, Patient Health Practices /Safety, Patient Personal Hygiene/Grooming, Patient Aftercare Safety Plan - Discharge Discharge Criteria: Tolerates medication w/o severe side effects, Free of agitation, Normal sleep pattern, Ability to care for self, Reduction of target symptoms Discharge to:: Longterm - Additional Comments 12/04/17 15:08 Pt seen and discussed in team meeting. Reason for admissions reviewed and discussed. Pt reported he was referred to the ED at [facility] because "the jerk put me here." Pt reported he was making reference to the staff members at [facility]hab [facility] nursing center. Pt reported being a resident at [facility] since February 06, 2017 after bring discharged from [facility]. Pt reported he was at [facility] for 12 months. Pt presented as grandiose and inappropriately laughing. Pt reported being multilingual and having the ability to play multiple musical instruments. Pt was referred to the ED due to aggression and increased agitation. Pt's brother, Preston Whittington ([phone]) is POA. Pt's medications reviewed and discussed. Tx plan reviewed and discussed. SW to continue to follow case and contact pt's brother for additional information. - Treatment Team Participation Patient/Family/SO Statement: Schizoaffective Disorder -Individual and group therapy -Psychoeducation -Continue Zyprexa 20 mg PO HS -Continue Depakote 750 mg PO BID; VPA 68 on 12/09/17, VPA 63.3 on 12/14/17 -Patient completed treatment for UTI -Continue Klonopin 1 mg PO BID -Disposition planning -Medicine consult -Physical therapy Discussed with Family/SO: No Was Patient/Family/SO present at Treatment Team Meeting: Yes Treatment Plan Review Patient participation: No (Pt refused to attend) Family/SO/Caregiver participation: No Additional Comments: Pt's progress reviewed and discussed on the unit. Pt refused to attend team meeting. Pt continues to be irritable and easily agitated towards staff members. Pt has not exhibited any aggressive bx's while on the unit. Pt's mood is labile. Pt observed to be talking to himself at times. Pt is compliant with prescribed medications. Pt attends clinical and activity groups sporadically. MD monitoring pt's bx and presentation on unit. Please refer to MD progress note for medication information and adjustments if needed. SW to continue to follow case. - Problem Agitated/aggressive behavior Date Initiated: 12/02/17 Time Initiated: 21:25 Progress toward outcomes: unchanged - Discharge / Continuing Care Discharge to:: Longterm Behavioral Health Services: Other (Medication management; structured group therapy; individual therapy) Health Needs: Follow up care/test, Special equipment, Nutritional, Medications/ Rx, Educational, Recreational/Social
[2017-12-18] MEDS: Albuterol 0.083% Inhal Sol (2.5 mg/3 mL) UD INH PRN (08:09)
[2017-12-18] MEDS: Pantoprazole 40 mg EC Tab PO SCH (08:23)
[2017-12-18] MEDS: Divalproex 250 mg DR(BID formulation) PO SCH ×2 (08:33→16:55)
--- NOTE | 2017-12-18 10:13 | PCM.PYCHPN ---
Psychiatric Progress Note - Psychiatric Progress Note Patient seen today, length of contact: Patient evaluated, case discussed with team, chart reviewed Patient Chief Complaint: "I'm okay." Problems Identified/Issues Discussed: Patient is at his baseline of functioning. Patient has some grandiose delusions at baseline (that is very talented, can play multiple instruments and speak multiple languages.) He has improved clinically and is not aggressive or agitated towards others. Diagnostic Results: VPA 68 on 12/09/17, VPA 63.2 on 12/14/17 Medication Change: No Medical Record Reviewed: Yes Consults ordered or reviewed: Medicine consult, Physical therapy Mental Status Examination - Cognitive Function Orientation: Person, Place, Situation, Time Memory: Impaired Attention: Poor Concentration: Poor Association: Loose Fund of Knowledge: Poor Decription of patient's judgement and insights: Chronic poor I/J - Mood Mood: Neutral - Affect Affect: Broad - Speech Speech: Appropriate - Formal Thought Process Formal Thought Process: Delusions (Patient w/ chronic grandiose delusions), Loosening of associations Psychotic Thoughts and Behaviors: +Grandiose - Suicidal Ideation Suicidal Ideation: No - Homicidal Ideation Homicidal Ideation: No Goal/Treatment Plan - Goal/Treatment Plan Need for Continued Stay: Severe functional impairment Progress Toward Problem(s) and Goals/Treatment Plan: Schizoaffective Disorder; patient is at his baseline of functioning and is psychiatrically stable for referral back to [facility]. -Individual and group therapy -Psychoeducation -Continue Zyprexa 20 mg PO HS -Continue Depakote 750 mg PO BID; VPA 68 on 12/09/17, VPA 63.3 on 12/14/17 -Patient completed treatment for UTI -Continue Klonopin 1 mg PO BID -Disposition planning -Medicine consult -Physical therapy Estimated Date of D/C: 12/19/17
[2017-12-19] MEDS: Divalproex 250 mg DR(BID formulation) PO SCH ×2 (09:04→16:24)
[2017-12-19] MEDS: Pantoprazole 40 mg EC Tab PO SCH (09:06)
--- NOTE | 2017-12-19 13:45 | PCM.PYCHPN ---
Psychiatric Progress Note - Psychiatric Progress Note Patient seen today, length of contact: Patient evaluated, case discussed with team, chart reviewed Patient Chief Complaint: "I'm okay." Problems Identified/Issues Discussed: No new events overnight. Patient is at his baseline of functioning. Patient has some grandiose delusions at baseline (that he is very talented, can play multiple instruments and speak multiple languages.) He has improved clinically and is not aggressive or agitated towards others. Shellfish Meat Separator Operator performed MOCA w/ patient, who scored 13/30. Patient was unable to complete visuaospatial/executive, memory, attention or orientation tasks appropriately. Patient has a diagnosis of dementia. Diagnostic Results: VPA 68 on 12/09/17, VPA 63.2 on 12/14/17 MOCA- 13. Patient was unable to complete visuaospatial/executive, memory, attention or orientation tasks appropriately. Patient has a diagnosis of dementia. DSM 5 Symptoms Update: Dementia; Schizoaffective Disorder Medication Change: No Medical Record Reviewed: Yes Consults ordered or reviewed: Medicine consult, Physical therapy Mental Status Examination - Cognitive Function Orientation: Person, Place, Situation, Time Memory: Impaired Attention: Poor Concentration: Poor Association: Loose Fund of Knowledge: Poor Decription of patient's judgement and insights: Chronic poor I/J - Mood Mood: Neutral - Affect Affect: Broad - Speech Speech: Appropriate - Formal Thought Process Formal Thought Process: Delusions (Patient w/ chronic grandiose delusions), Loosening of associations Psychotic Thoughts and Behaviors: +Grandiose - Suicidal Ideation Suicidal Ideation: No - Homicidal Ideation Homicidal Ideation: No Goal/Treatment Plan - Goal/Treatment Plan Need for Continued Stay: Severe functional impairment Progress Toward Problem(s) and Goals/Treatment Plan: Dementia; Schizoaffective Disorder; patient is at his baseline of functioning and is psychiatrically stable for referral back to detention. Shellfish Meat Separator Operator performed MOCA w/ patient, who scored 13/30. Patient was unable to complete visuaospatial/executive, memory, attention or orientation tasks appropriately. Patient has a diagnosis of dementia. -Individual and group therapy -Psychoeducation -Continue Zyprexa 20 mg PO HS -Continue Depakote 750 mg PO BID; VPA 68 on 12/09/17, VPA 63.3 on 12/14/17 -Patient completed treatment for UTI -Continue Klonopin 1 mg PO BID -Disposition planning -Medicine consult -Physical therapy Estimated Date of D/C: 12/20/17
[2017-12-19] MEDS: Albuterol 0.083% Inhal Sol (2.5 mg/3 mL) UD INH PRN (13:47)
[2017-12-20] MEDS: Albuterol 0.083% Inhal Sol (2.5 mg/3 mL) UD INH PRN (01:27)
[2017-12-20 05:39] VITALS: RESP 19
[2017-12-20] MEDS: Pantoprazole 40 mg EC Tab PO SCH (08:21)
[2017-12-20] MEDS: Divalproex 250 mg DR(BID formulation) PO SCH ×2 (08:21→16:24)
--- NOTE | 2017-12-20 09:36 | PCM.PYCHPN ---
Psychiatric Progress Note - Psychiatric Progress Note Patient seen today, length of contact: Patient evaluated, case discussed with team, chart reviewed Patient Chief Complaint: "I'm okay." Problems Identified/Issues Discussed: No new events. Patient is at his baseline of functioning. Patient has some grandiose delusions at baseline (that he is very talented, can play multiple instruments, has many girlfriends and speaks multiple languages.) He has improved clinically and is not aggressive or agitated towards others. Diagnostic Results: VPA 68 on 12/09/17, VPA 63.2 on 12/14/17 MOCA- 13/30. Patient was unable to complete visuospatial/executive, memory, attention or orientation tasks appropriately. Patient has a diagnosis of dementia. Medication Change: No Medical Record Reviewed: Yes Consults ordered or reviewed: Medicine consult, Physical therapy Mental Status Examination - Cognitive Function Orientation: Person, Place Memory: Impaired Attention: Poor Concentration: Poor Association: Loose Fund of Knowledge: Poor Decription of patient's judgement and insights: Chronic poor I/J - Mood Mood: Neutral - Affect Affect: Broad - Speech Speech: Appropriate - Formal Thought Process Formal Thought Process: Delusions (Patient w/ chronic grandiose delusions), Loosening of associations Psychotic Thoughts and Behaviors: +Grandiose at baseline - Suicidal Ideation Suicidal Ideation: No - Homicidal Ideation Homicidal Ideation: No Goal/Treatment Plan - Goal/Treatment Plan Progress Toward Problem(s) and Goals/Treatment Plan: Dementia; Schizoaffective Disorder; patient is at his baseline of functioning and is psychiatrically stable for referral back to group home. Freight Elevator Erector performed MOCA w/ patient, who scored 13/30. Patient was unable to complete visuospatial/executive, memory, attention or orientation tasks appropriately. Patient has a diagnosis of dementia. -Individual and group therapy -Psychoeducation -Continue Zyprexa 20 mg PO HS -Continue Depakote 750 mg PO BID; VPA 68 on 12/09/17, VPA 63.3 on 12/14/17 -Patient completed treatment for UTI -Continue Klonopin 1 mg PO BID -Disposition planning -Medicine consult -Physical therapy Estimated Date of D/C: 12/21/17
--- NOTE | 2017-12-20 11:44 | PCM.PYCHDC ---
Mental Status Examination - Mental Status Examination Orientation: Person Memory: Impaired Mood: Neutral Affect: Broad Speech: Appropriate Attention: Poor Concentration: Poor Association: Loose Fund of Knowledge: Poor Formal Thought Process: Delusions (Chronic mild grandiose delusions at baseline) , Loosening of associations Description of patient's judgement and insight: Chronic poor I/J due to dementia Psychotic Thoughts and Behaviors: +Chronic mild grandiose delusions at baseline Suicidal Ideation: No Current Homicidal Ideation?: No Discharge Summary - Discharge Note Reason for Hospitalization: HPI: 67 yo male w/ h/o schizoaffective disorder presents w/ worsening behavioral issues, mood lability and acute psychosis. As per patient's family, patient has been increasing delusional, believing that he has special abilities. He has also been physically and verbally aggressive towards others. Patient is minimizing symptoms to publicity writer. He denies depression/anxiety. He denies ideations to harm self or others. He denies AH/VH, but seems internally preoccupied and is observed talking to himself. He did express vague paranoia that the jail staff were trying to set him up, but denies that anyone is actively trying to persecute him. PPHx: H/o Schizoaffective vs bipolar disorder; was treated w/ [place] in the past, but this was discontinued due to lithium toxicity. He is now treated w/ Haldol, Zyprexa and Ativan. PMHx: (As per records, patient not able to provided accurate history) Was found to have UTI in the [facility] ER and was started on Keflex; Cellulities, GI hemorrhage, h/o MRSA, h/o sepsis, anemia ALL: [place]ox[place] SHx: Resides in jail; brother is POA Consultations:: List each consultation separately and include: 1. Reason for request. 2. Findings. 3. Follow-up Consultations: Medicine consult, Physical therapy Summary of Hospital Course include:: 1. Description of specific treatment plan utilized for patients during their course of treatmen. 2. Summarize the time- course for resolution of acute symptoms and/or regressed behaviors. 3. Describe issues identified and worked on during hospitalization. 4. Describe medication utilized. 5. Describe medical problems identified and treated. 6. Reassessment of suicide risk Summary of Hospital Course: Patient was admitted to the geriatric psychiatry unit. He was stabilized on Zyprexa 20 mg PO HS, Depakote 750 mg PO BID (VPA 68 on 12/09/17, VPA 63.3 on ), and Klonopin 1 mg PO BID. He completed treatment for UTI. He is currently at his baseline of functioning and is psychiatrically stable for discharge. - Diagnosis (1) Dementia Current Visit: Yes Status: Chronic (2) Schizoaffective disorder Current Visit: Yes Status: Chronic - Final Diagnosis (DSM 5) Condition upon Discharge: STABLE DSM 5: Dementia; Schizoaffective Disorder Disposition: TRANSF TO [facility] Follow-up Treatment Plan: Dementia; Schizoaffective Disorder; patient is at his baseline of functioning and is psychiatrically stable for discharge. Patient scored 13/30 on MOCA. Patient was unable to complete visuospatial/ executive, memory, attention or orientation tasks appropriately. Patient has a diagnosis of dementia. -Individual and group therapy -Psychoeducation -Continue Zyprexa 20 mg PO HS -Continue Depakote 750 mg PO BID; VPA 68 on 12/09/17, VPA 63.3 on 12/14/17 -Patient completed treatment for UTI -Continue Klonopin 1 mg PO BID -Medicine consult -Physical therapy - Smoking Cessation Smoking Cessation Medication prescribed: No Reason for not providing: Not indicated - Antipsychotic Medications Pt discharged on 2 or more routine antipsychotic medications: No
[2017-12-20 15:37] VITALS: BP 148/93; PULSE 68; TEMP 97.2
== END 2017-12-20 16:52 | DRG 430 ==
LOC: H.ER 16:54 → H.STEP 19:47 → H.ER 19:56
PROVIDERS: ADMIT Psychiatry & Neurology Psychiatry; ATTEND Psychiatry & Neurology Psychiatry
PROC: GZHZZZZ Group Psychotherapy (ICD-10-PCS; principal; 2017-12-02)
PROC: GZ58ZZZ Individual Psychotherapy, Cognitive-Behavioral (ICD-10-PCS; 2017-12-02)
DX: F25.1 Schizoaffective disorder, depressive type (principal); N39.0 Urinary tract infection, site not specified; F03.90 Unspecified dementia, unspecified severity, without behavioral disturbance, psychotic disturbance, mood disturbance, and anxiety; F41.9 Anxiety disorder, unspecified; I10 Essential (primary) hypertension; K59.09 Other constipation; N40.0 Benign prostatic hyperplasia without lower urinary tract symptoms; Z87.891 Personal history of nicotine dependence; Z87.11 Personal history of peptic ulcer disease; Z79.899 Other long term (current) drug therapy